=== PATIENT | male | born 1980 | race Caucasian/White ===

== ENCOUNTER → 2018-09-20 | Outpatient (CLI) | payer BC ==
--- NOTE | 2018-09-20 19:38 | PCVCIMAG ---
EXAM: ABDOMINAL ULTRASOUND COMPLETE INDICATION: Abdominal pain FINDINGS: Gallbladder: No gallstones. No wall thickening or abnormal pericholecystic fluid. Liver: Normal in size measuring 17.4 cm in length. No focal masses. Bile ducts: No intra or extra hepatic bile duct dilatation. The common bile duct measures 3.2 mm. Pancreas: Unremarkable where seen. Spleen: Normal in size measuring 10.5 cm in greatest dimension. No focal masses. Right kidney: No hydronephrosis. Length measures 11.6 cm. Left kidney: No hydronephrosis. Length measures 11.2 cm. Inferior vena cava: Normal in size where seen. Aorta: Normal in caliber where seen. IMPRESSION: Increased echogenicity in the liver most likely due to diffuse fatty infiltration. Abdomen otherwise unremarkable. No evidence of cholelithiasis. LOC:OFFICE
== END | disposition home or self-care (01) ==
LOC: PCVCIMAG 14:15
PROVIDERS: ATTEND Internal Medicine Cardiovascular Disease
DX: R94.5 Abnormal results of liver function studies (principal)
CPT/HCPCS: 76700